=== PATIENT | female | born 1965 | race Two or more races ===

== ENCOUNTER 2018-10-09 13:24 | Emergency (ER) | payer SELFPAY ==
[~2018-10-09] VITALS: Ht 154.9 cm; Wt 69.9 kg
[2018-10-09 13:54] VITALS: Ht 154.9 cm; Wt 69.9 kg
[2018-10-09 16:18] LABS: CALCIUM 8.4 mg/dL (8.5-10.1); CHLORIDE SERUM 100 mmol/L (98-107); CREATININE SERUM 0.7 mg/dL (0.6-1.0); GFR1 > 60 mL/min; GLUCOSE SERUM 387 mg/dL (74-106); POTASSIUM SERUM 3.7 mmol/L (3.5-5.1); SODIUM SERUM 135 mmol/L (136-145)
[2018-10-09 16:23] LABS: ALBUMIN 3.5 g/dL (3.4-5.0); ALKALINE PHOSPHATASE 141 U/L (46-116); ALT/SGPT 17 U/L (14-59); AST/SGOT 17 U/L (15-37); BILIRUBIN TOTAL 0.2 mg/dL (0.20-1.00); HDL CHOLESTEROL 41 mg/dL (40-60); LIPASE 154 IU/L (73-393); TOTAL PROTEIN, SERUM 7.3 g/dL (6.4-8.2)
[2018-10-09 16:25] LABS: CHOLESTEROL 201 mg/dL (<200); CHOLESTEROL/HDL RATIO 4.9; TRIGLYCERIDES 227 mg/dL (<150)
[2018-10-09 16:28] LABS: BASOPHIL % 0.3 % (0-2); PLATELET COUNT 327 x10^3mcL (130-400); RED CELL DISTRIBUTION WIDTH 12.5 % (11.5-14.5)
[2018-10-09 16:36] LABS: T3 TOTAL 0.79 ng/mL
[2018-10-09 16:37] LABS: FREE T4 1.02 ng/dL (0.76-1.46); FREE THYROXINE INDEX 2.2 ug/dL (1.4-4.5); T4(THYROXINE) 6.6 ug/dL (4.7-13.3)
[2018-10-09 17:29] LABS: microscopic required? NO
[2018-10-09 17:49] LABS: UA SPECIFIC GRAVITY <=1.005 (1.005-1.035); urine erythrocyte NEGATIVE (NEGATIVE)
[2018-10-09 20:44] VITALS: BP 123/69
== END 2018-10-09 20:44 | disposition home or self-care (01) ==
LOC: ED 13:24
PROVIDERS: Specialist
DX: R10.11 Right upper quadrant pain (principal); E11.9 Type 2 diabetes mellitus without complications
CPT/HCPCS: 82962; 83880; 84439; J1815; J1885; J3010; J7030; Q0092